=== PATIENT | female | born 1955 | race Caucasian/White ===

== ENCOUNTER 2017-03-20 09:25 | Day surgery (SDC) | payer BC, MEDICARE ==
[~2017-03-20] VITALS: Ht 170.2 cm; Wt 84.4 kg
[2017-03-20] MEDS ORDERED: PAXIL40 MG PO (10:17)
[2017-03-20] MEDS ORDERED: LIPITOR10 MG PO (10:37)
[2017-03-20] MEDS ORDERED: NEXIUM40 MG PO (10:38)
[2017-03-20] MEDS ORDERED: FLUTICASONE PRO16 GM NAS (10:38)
[2017-03-20] MEDS ORDERED: LISINOPRIL10 MG PO (10:38)
[2017-03-20] MEDS ORDERED: AVELOX400 MG PO (10:39)
[2017-03-20] MEDS ORDERED: KLOR-CON M2020 MEQ PO (10:39)
[2017-03-20] MEDS ORDERED: REQUIP1 MG PO (10:40)
[2017-03-20] MEDS ORDERED: ESTRACE0.5 MG PO (10:42)
--- NOTE | 2017-03-20 12:42 | NUR ---
03/20/17 Stephen2 Chana Barreto 1239-PATIENT ARRIVED TO PACU ON 2L NC O2 SAT 98%. PATIENT AWAKE DENIES PAIN OR NAUSEA. PATIENT DOES HAVE HICCUPS. DROWSY
--- NOTE | 2017-04-25 10:25 | OR ---
[facility] [address] [place], [place] [address] Signed DATE OF PROCEDURE: 03/20/17 PREOPERATIVE DIAGNOSIS Clinical gastroesophageal reflux disease, longstanding. POSTOPERATIVE DIAGNOSES Enterogastritis. Poor flap valve and chronic esophagitis; no evidence of Baeza epithelium. PROCEDURE: Esophagogastroduodenoscopy with biopsy. SURGEON: Noah Murray MD ANESTHESIA: Intravenous sedation, Fentanyl 100 mcg, Versed 3.5 mg. INDICATION A 61-year-old white woman, who is a patient of Dr. Ru Brooks. She had a significant reflux disease including spontaneous regurgitation, substernal burning pain, and so on. She is currently on esomeprazole 40 mg p.o. q. day. She is admitted to undergo an upper endoscopy with to better characterize her problem anticipating possible surgical intervention in the future. She understands the risk of the procedure including but not limited to bleeding, infection, perforation, and other unforeseen complications. Understanding this, she wishes to proceed. FINDINGS Chronic esophagitis was noted, but there was no evidence of Baeza epithelium, stricture, or neoplasm. There was no sign of varices. The s tomach itself had proximal gastric polyps, a few only, probably related to PPI use. The antrum did have linear erythematous erosive changes consistent with gastritis, but no ulcer proper, and there was no evidence of cancer. The duodenum was normal. SALINA test was negative 15 minutes post procedure. DESCRIPTION OF PROCEDURE The patient was brought to the endoscopy suite and given topical Hurricane spray, hypopharyngeal anesthesia, and placed in a lateral decubitus position. She was given intravenous sedation to the point of slurred speech and nystagmus. A bite-block was placed. A full cardiopulmonary monitoring was maintained. An Olympus video upper endoscope was passed in the hypopharynx. The vocal cords appeared normal. The hypopharyngeal tissues were not pa r ticularly edematous. The scope was advanced in the esophagus. Chronic inflammatory changes were noted in the mid and distal esophagus with no stricture proper. The scope was passed into the stomach, insufflated with air, and rugal folds appeared reasonably normal. The antrum showed erythematous linear near Electronically Signed By: NOAH MURRAY MD 04/25/17 1025 PATIENT NAME: EDWINA SANCHEZ OPERATIVE REPORT DATE OF : 51 PHYSICIAN: NOAH MURRAY MD REPORT #: [id number] REPORT IS CONFIDENTIAL AND NOT TO BE RELEASED WITHOUT AUTHORIZATION [facility] [address] [place], [place] [address] Signed erosions of the pylorus. The scope was passed through the pylorus into the duodenum which was normal. Overall, biopsies were taken from the duodenum to assess for celiac disease. Careful inspection of bulbar portion showed no sign of ulcer. The scope was withdrawn from the stomach where biopsies were taken from the prepyloric antrum, pathologic testing. Retroflex view showed a marginal flap valve generally. There was no evidence of Dakota ulcer. The scope was straightened a bit more and withdrawn. Biopsy was taken of the distal esophagus and midesophagus as well. The patient was taken to the recovery room in good condition after procedure having suffered no complications. CONCLUDING DIAGNOSES Enterogastritis with proximal gastric polyps, probably related to PPI use. Poor flap valve and chronic esophagitis. Enterogastritis. PLAN Recommend continued use of esomeprazole 40 mg p.o. q. day. We will check the pathology reports. Consideration will be made for antireflux operation and another testing appropriate to it. She will return to see us in approximately 4 weeks. MD DENNY Moody/Della /[id number] cc: Ru Brooks MD Electronically Signed By: NOAH MURRAY MD 04/25/17 1025 PATIENT NAME: EDWINA SANCHEZ OPERATIVE REPORT DATE OF : 51 PHYSICIAN: NOAH MURRAY MD REPORT #: [id number] REPORT IS CONFIDENTIAL AND NOT TO BE RELEASED WITHOUT AUTHORIZATION
== END 2017-03-20 13:19 | disposition home or self-care (01) ==
LOC: OPS 09:25 → DS 09:25 → OPS 11:00
PROVIDERS: Surgery
PROC: 0DB28ZX Excision of Middle Esophagus, Via Natural or Artificial Opening Endoscopic, Diagnostic (ICD-10-PCS; 2017-03-20)
PROC: 0DB38ZX Excision of Lower Esophagus, Via Natural or Artificial Opening Endoscopic, Diagnostic (ICD-10-PCS; 2017-03-20)
PROC: 0DB78ZX Excision of Stomach, Pylorus, Via Natural or Artificial Opening Endoscopic, Diagnostic (ICD-10-PCS; 2017-03-20)
PROC: 0DB68ZX Excision of Stomach, Via Natural or Artificial Opening Endoscopic, Diagnostic (ICD-10-PCS; 2017-03-20)
PROC: 0DB98ZX Excision of Duodenum, Via Natural or Artificial Opening Endoscopic, Diagnostic (ICD-10-PCS; principal; 2017-03-20 11:00)
DX: K29.50 Unspecified chronic gastritis without bleeding (principal); K31.7 Polyp of stomach and duodenum; K20.9 Esophagitis, unspecified; K31.89 Other diseases of stomach and duodenum; K44.9 Diaphragmatic hernia without obstruction or gangrene; I10 Essential (primary) hypertension; Z90.49 Acquired absence of other specified parts of digestive tract; Z90.710 Acquired absence of both cervix and uterus; Z98.890 Other specified postprocedural states
CPT/HCPCS: 99152; 99153; J2250; J3010; J7120

== ENCOUNTER 2017-10-23 08:23 | Inpatient (IN) | payer BC, MEDICARE ==
[~2017-10-23] VITALS: Ht 170.2 cm; Wt 82.5 kg
--- OUTSIDE RECORDS SUMMARY | ~2017-10-23 | XMS | Clinical Summary ---
Demographics + + + | Address | [address] | | | [place] [address] | + + + | Home Phone | | + + + | Preferred Language | Unknown | + + + | Marital Status | | + + + | Protestant Affiliation | Unknown | + + + | Race | White | + + + | Ethnic Group | Not or | + + + Author + + + | Author | [facility] | + + + | Organization | [facility] | + + + | Address | Unknown | + + + | Phone | Unavailable | + + + Support + + + + + | Name | Relationship | Address | Phone | + + + + + | WHIT SANCHEZ | ECON | [place] | | + + + + + Care Team Providers + +------+ + | Care Vice President Payer Name | Role | Phone | + +------+ + | Farnaz Chase MD | PP | | + +------+ + Source Comments VALENTINA is fully live on both [employer] Ambulatory and [employer] InPatient[facility] Allergies Not on File Current Medications Not on file Active Problems Not on file Encounters +--------+ + + + + | Date | Type | Specialty | Care Team | Description | +--------+ + + + + | 10/09/ | Documentati | | Cyndy Morris | | | 2017 | on | | Raghu Martin | | +--------+ + + + + | 10/09/ | Documentati | | Tristan Odonnell, | | | 2018 | on | | POWER Wilson-A | | +--------+ + + + + | 10/06/ | Diagnostic | | Tristan Odonnell, | Hearing loss | | 2017 | Visit | | POWER Wilson-A | | +--------+ + + + + from Last 3 Months Social History + +-------+ +--------+------+ | Tobacco Use | Types | Packs/Day | Years | Date | | | | | Used | | + +-------+ +--------+------+ | Never Assessed | | | | | + +-------+ +--------+------+ + + + | Sex Assigned at | Date Recorded | | | | + + + | Not on file | | + + + Plan of Treatment +--------+ + + + + | Date | Type | Specialty | Care Team | Description | +--------+ + + + + | 01/06/ | Diagnostic | | Tristan Odonnell, | | | 2017 | Visit | | JUSTIN Wilson [address] | | | | | | [address] | | | | | | [address] [place], [place] | | | | | | [phone] | | | | | | | | +--------+ + + + + + + + + + | Health Maintenance | Due Date | Last Done | Comments | + + + + + | INFLUENZA VACCINE | | | | | (FLU SHOT) | 7 | | | + + + + + Results Not on filefrom Last 3 Months"
--- OUTSIDE RECORDS SUMMARY | ~2017-10-23 | XMS | Encounter Summary ---
Demographics + + + | Address | [address] | | | [place] [address] | + + + | Home Phone | | + + + | Preferred Language | Unknown | + + + | Marital Status | | + + + | Oriental Orthodox Affiliation | Unknown | + + + | Race | White | + + + | Ethnic Group | Not or | + + + Author + + + | Author | [facility] | + + + | Organization | [facility] | + + + | Address | Unknown | + + + | Phone | Unavailable | + + + Support + + + + + | Name | Relationship | Address | Phone | + + + + + | WHIT SANCHEZ | ECON | [place] | | + + + + + Care Team Providers + +------+ + | Care Soft Mud Molder Name | Role | Phone | + +------+ + | Farnaz Chase MD | PCP | | + +------+ + Encounter Details +--------+ + + + + | Date | Type | Department | Care Team | Description | +--------+ + + + + | 10/09/ | Documentati | Otolaryngology | Tristan Odonnell, | | | 2018 | on | Audiology Services | [address] | | | | | at [facility] [address] | [facility] | | | | | [facility] | [address] [place], [place] | | | | | Mailcode: [address] | [phone] | | | | | [facility] | | | | | | [place], [place] | | | | | | [address] | | | | | | [phone] | | | +--------+ + + + + Social History + +-------+ +--------+------+ | Tobacco [...] on file | | + + + as of this encounter Plan of Treatment +--------+ + + + + | Date | Type | Specialty | Care Team | Description | +--------+ + + + + | 01/06/ | Diagnostic | Carpenter/Labor | Tristan Odonnell, | | | 2018 | Visit | | [address] | | | | | | [address] | | | | | | [place] | | | | | | [address] | | | | | | | | +--------+ + + + + as of this encounter Visit Diagnoses Not on filein this encounter"
--- OUTSIDE RECORDS SUMMARY | ~2017-10-23 | XMS | Encounter Summary ---
Demographics + + + | Address | [address] | | | [place] [address] | + + + | Home Phone | | + + + | Preferred Language | Unknown | + + + | Marital Status | | + + + | Hinduism Affiliation | Unknown | + + + | Race | White | + + + | Ethnic Group | Not or | + + + Author + + + | Author | [facility] | + + + | Organization | [facility] | + + + | Address | Unknown | + + + | Phone | Unavailable | + + + Support + + + + + | Name | Relationship | Address | Phone | + + + + + | WHIT SANCHEZ | ECON | [place] | | + + + + + Care Team Providers + +------+ + | Care Conservation Agent Name | Role | Phone | + +------+ + | Farnaz Chase MD | PCP | | + +------+ + Encounter Details +--------+ + + + + | Date | Type | Department | Care Team | Description | +--------+ + + + + | 10/09/ | Documentati | Otolaryngology | Cyndy Morris | | | 2018 | on | Audiology Services | K, [address] | | | | | at [facility] [address] | [facility] | | | | | [facility] | [place], [place] | | | | | Mailcode: [address] | [phone] | | | | | [facility] | | | | | | [place], [place] | | | | | | [address] | | | | | | [phone] | | | +--------+ + + + [...] + + | 01/06/ | Diagnostic | Precision Grinder External | Tristan Odonnell, | | | 2017 | Visit | | [address] | | | | | | [address] [facility] | | | | | | [place] | | | | | | [phone] | | | | | | | | +--------+ + + + + as of this encounter Visit Diagnoses Not on filein this encounter"
--- OUTSIDE RECORDS SUMMARY | ~2017-10-23 | XMS | Encounter Summary ---
Demographics + + + | Address | [address] | | | [place] [address] | + + + | Home Phone | | + + + | Preferred Language | Unknown | + + + | Marital Status | | + + + | Anabaptist Affiliation | Unknown | + + + | Race | White | + + + | Ethnic Group | Not or | + + + Author + + + | Author | [facility] | + + + | Organization | [facility] | + + + | Address | Unknown | + + + | Phone | Unavailable | + + + Support + + + + + | Name | Relationship | Address | Phone | + + + + + | WHIT SANCHEZ | ECON | [place] | | + + + + + Care Team Providers + +------+ + | Care Advisor Advocate Angel Co Founder Name | Role | Phone | + +------+ + | Farnaz Chase MD | PCP | | + +------+ + Reason for Visit + + + | Reason | Comments | + + + | Hearing loss | | + + + Benefits Check (Routine) + +--------+ + + + + | Status | Reason | Specialty | Diagnoses / | Referred By | Referred To | | | | | Procedures | Contact | Contact | + +--------+ + + + + | Authorized | | [facility] | | Non[facility] | Ent | | | | | | Epic Dept | [facility] | | | | | | | [address] | | | | | | | [address] | | | | | | | [facility] | | | | | | | Mailcode: | | | | | | | [address] | | | | | | | Physician's | | | | | | | Pavilion | | | | | | | [place], [place] | | | | | | | [address] | | | | | | | Phone: | | | | | | | [phone] | | | | | | | Fax: | | | | | | | [phone] | + +--------+ + + + + Encounter Details +--------+ + + + + | Date | Type | Department | Care Team | Description | +--------+ + + + + | 10/06/ | Diagnostic | Otolaryngology | Tristan Odonnell, | Hearing loss | | 2018 | Visit | Audiology Services | [address] | | | | | at [facility] [address] | [address] | | | | | [facility] | [address] [place], [place] | | | | | Mailcode: [id number] | [phone] | | | | | Physician[facility] | | | | | | [place], [place] | | | | | | [address] | | | | | | [phone] | | | +--------+ + + + [...] + + + as of this encounter Progress Notes Katie Phillips CCC-A - 10/06/2017 2:30 PM [facility] Cochlear Implant Program Name: Analia Sanchez : 1955 Date of Visit: 10/06/2017 Clinician: Katie Phillips M.A., [facility] Interval: re-establishing CI care CI: Right, HUANG: Left (ReSound BTE) Delivery Assistant: Cochlear Internal/External: CI24M/Glorieta Cochlear Implant Programming Summary History: Analia Sanchez, 61 y.o., was seen today at the [facility] to reestablis h care of her right cochlear implant device. Ms. Sanchez currently utilizes a Glorieta proc essor on her right ear. She utilizes a ReSound hearing aid for her left ear which she purch ased 9-12 months ago in [place], [place]. As a reminder, Ms. 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 She was implanted with a right CI24M omero ce by Dr. Hope in 1999 and previously received CI care from [facility] in [place], [place]. Ms. Zuniga ey transferred CI care to the [facility] in June,. She was last seen for transf er of care appointment on 07/16/2015. At the present appointment, Ms. Sanchez reported that Cochlear had contacted her and said that her current Glorieta processor has been obsolesced and she needed to initiate the proces s for CI upgrade. Ms. Sanchez shared that she was a little confused as she thought the pro cessor upgrade would be here to forklift picker today. Ms. Sanchez's Glorieta processor is currentl y obsolete and will not be repaired or replaced by the manufacturing technology professor. The patient was counseled regarding CI upgrade process as well as Cochlear's processor tech nology currently compatible with her internal device (N6 and Kanso). Ms. Sanchez expressed that she would like to pursue upgrade to the Kanso speech processor. An order form was shayy led out and emailed to [employer] Upgrade Team on behalf of the patient. A letter of medical necessity was written and routed for physician signature. Programming: Right CI: Ms. Sanchez's right Glorieta processor was connected to the computer for programming. Impe dances were WNL across the electrode array. Current MAP 20 was opened and live voice was ac tivated. All electrodes were functioning within compliance levels. No changes were made to current settings and settings remain downloaded as follows: Map(s) Programmed: Program Location Map # Description P1 20 Previously preferred setting, +3 cu's P2 18 Previously preferred setting It was recommended that Ms. Sanchez return in 3 months for CI upgrade appointment, or befo re that time on an as needed basis. Ms. Sanchez also shared that she has recently been considering second side cochlear implan t for the left ear as her hearing continues to decline, but is somewhat hesitant. Expectati ons regarding second side CI were discussed briefly with the patient and Ms. Sanchez was en couraged to contact the [facility] for second side CI evaluation sequence should she dec chang to pursue further. It was a pleasure working with Ms. Sanchez today. If there are any questions regarding to day's evaluation, please do not hesitate to contact me at . Katie Phillips M.A., CCC-A Clinical & Rehabilitative [facility] Department of Otolaryngology Audiology Services [address] [place] [address] in this encounter Plan of Treatment +--------+ + + + + | Date | Type | Specialty | Care Team | Description | +--------+ + + + + | 01/06/ | Diagnostic | Reptile Farmer | Tristan Odonnell, | | | 2018 | Visit | | [address] | | | | | | [address] | | | | | | Rd [place], [place] | | | | | | [address] | | | | | | | | +--------+ + + + + as of this encounter Visit Diagnoses Not on filein this encounter"
[~2017-10-23 08:23] MED LIST: AVELOX400 MG PO; ESTRACE0.5 MG PO; FLUTICASONE PRO16 GM NAS; KLOR-CON M2020 MEQ PO; LIPITOR10 MG PO; LISINOPRIL10 MG PO; NEXIUM40 MG PO; PAXIL40 MG PO; REQUIP1 MG PO
--- NOTE | 2017-11-10 15:31 | NUR ---
11/10/17 1531 Britt López 1434 PT ARRIVED IN PACU SLEEPY WITH NG TUBE IN PLACE AND PLACED ON INTERMITENT SUCTION. ANESTHESIA AT BEDSIDE. PT'S HEARING AIDE PLACED IN L EAR AND COCHLEAR IMPLANT PLACED ON R EAR. 1508 PT C/O ABD PAIN. FENTANYL 25MCG GIVEN IVP. 1515 PT RESTING. REU. 1522 PT GRIMACING AND C/O ABD PAIN. UNABLE TO RATE AT THIS TIME. FENTANYL 25MCG GIVEN IVP. 1531 PT RESTING.
--- NOTE | 2017-11-10 16:15 | NUR ---
PT TRANSFERED TO MED/SURG FROM PACU. PT REPORTS 8/10 PAIN (SEE MAR FOR MEDICATION GIVEN). AT BEDSIDE. PT REPORTS DISCOMFORT IN BACK. WARM BLANKET PROVIDED AND SUPPORTING PT REQUESTED WITH HAND AT BACK. SCDS IN PLACE. BED RAILS UP. CALL LIGHT WITHIN REACH. PT VERBALIZES UNDERSTANDING OF PLAN OF CARE AND STATES SHE HAS NO ADDITIONAL REQUESTS OR COMPLAINTS AT THIS TIME.
--- NOTE | 2017-11-10 17:35 | NUR ---
RN CALLED TO CLARIFY ORDERS FOR AGRICULTURE LABORER AND I.V. TYLENOL ORDER IN NURSE NOTIFY ORDER. AGRICULTURE LABORER IS CONFIRMED TO BE MORPHINE AND CONFIRMED TYLENOL I.V. ORDER.
--- NOTE | 2017-11-10 18:00 | NUR ---
PT RESTING IN BED REPORTS BACK SPASMS DUE TO RESTING ON HER BACK. SCANT AMOUNT OF RED DRAINAGE IN NGT AT THIS TIME. V/S STABLE. SPOUSE AT BEDSIDE. TYLENOL I.V. INFUSING AT THIS TIME.
--- NOTE | 2017-11-10 18:12 | NUR ---
PT ARRIVED TODAY POST HILL REPAIR. MORPINE GIVEN X1 WITH GOOD RESULTS FOR PAIN MANAGEMENT. PT REPORTS ONGOING CHRONIC PAIN IN BACK. REPOSITIONING AND HEAT APPLIED WITH GOOD RESULTS. PT TOLERATING ICE CHIPS. SCANT AMOUNT OF RED DRAINAGE FROM NG TUBE TO BE MONITORED. MEPLEX AND OPSITE DRESSING CDI. ON-Q PUMP IN PLACE. DURAMORPH PROTOCOL ENDS AT 2200, TRANSPORTATION ASSOCIATE TO BEGIN AT THAT TIME. BURKS TO GRAVITY, PATIENT, GOOD UO.
--- NOTE | 2017-11-10 18:13 | NUR ---
PATIENT RELAXING IN BED, EYES CLOSED. ASKED ME TO SHUT LIGHTS OFF WHEN I LEAVE ROOM. FRESH WATER GIVEN, CALL LIGHT IN REACH. NO OTHER NEEDS AT THIS TIME.
--- NOTE | 2017-11-10 18:49 | NUR ---
PT RESTING IN BED REPORTS PAIN 3/10 AND THAT IS TOLERABLE AT THIS TIME.
--- NOTE | 2017-11-10 19:00 | NUR ---
RECEIVED REPORT FROM RN. PATIENT IS RESTING IN BED, BREATHING IS EVEN AND UNLABORED. O2 SATURATION IS 95% ON 2L O2 VIA NC. REPORTS 2/10 ABD PAIN. APPEARS TO BE TIRED, CLOSES EYES OFF AND ON DURING REPORT. DENIES NEEDS AT THIS TIME. NG TUBE HAS SCANT BLOOD IN TUBE, MD NOTIFIED. CALL LIGHT WITHIN REACH, AT BEDSIDE.
--- NOTE | 2017-11-10 20:08 | NUR ---
PATIENT IS RESTING IN RIGHT SIDE, BREATHING IS EVEN AND UNLABORED. RR IS 14. O2 SATURATION IS 95% ON 2L O2. NO NEW DRAINAGE FROM NGT. REPORTS 5/10 PAIN IN ABD, PRN IV DILAUDID GIVEN PER EMAR. DENIES NAUSEA AT THIS TIME. RESTING COMFORTABLY. ASSESSMENT DONE. NO FURTHER NEEDS. CALL LIGHT WITHIN REACH, AT BEDSIDE.
--- NOTE | 2017-11-10 21:09 | NUR ---
PATIENT RESTING COMFORTABLY IN BED, BREATHING IS EVEN AND UNLABORED. O2 SATURATION IS 95% ON 2L O2. REPORTS 2/10 PAIN IN ABD. CALL LIGHT WITHIN REACH, FAMILY AT BEDSIDE.
--- NOTE | 2017-11-10 22:05 | NUR ---
CALLED DR. MURRAY FOR PLUMBING TECHNICIAN ORDER VERIFICATION. PATIENT IS TO RECEIVE MORPHINE PLUMBING TECHNICIAN, NOT DILAUDID PLUMBING TECHNICIAN.
--- NOTE | 2017-11-10 22:15 | NUR ---
PATIENT RESTING IN BED COMFORTABLY, BREATHING IS EVEN AND UNLABORED. REPORTS 4/10 PAIN IN ABD. MORPHINE HEAT READER PUMP STARTED WITH SECOND RN VERIFY BY CHANTAL. EDUCATION ABOUT HEAT READER PUMP COMPLETED, PATIENT REPEATED BACK UNDERSTANDING. O2 SATURATION IS 89% ON ROOM AIR, PATIENT PUT ON 1L O2. SMALL AMOUNT OF BROWN DRAINAGE FROM NGT. REINFORCED DRESSING DUE TO SMALL AMOUNT OF SEROSANGUINEOUS DRAINAGAGE FROM ON-Q PUMP. BURKS CATHETER REMOVED. PATIENT DENIES FURTHER NEEDS. CALL LIGHT WITHIN REACH, FAMILY AT BEDSIDE.
--- NOTE | 2017-11-11 00:08 | NUR ---
ASSISTED PATIENT TO BEDSIDE COMODE WITH 2PA. PATIENT IS WEAK, REQUIRES ASSISTANCE WITH GETTING OUT OUT BED, WHEN STANDING, PATIENT DENIES DIZZINESS, NO SHORTNESS OF BREATH NOTED. NOW RESTING IN BED COMFORTABLY AGAIN, BREATHING IS EVEN AND UNLABORED. O2 SATURATION IS 95% ON 1L O2 VIA NC. ORNAMENTAL METAL ERECTOR APPRENTICE PUMP OPERATING APPROPRIATELY. DENIES FRUTHER NEEDS. CALL LIGHT WITHIN REACH, FAMILY AT BEDSIDE.
--- NOTE | 2017-11-11 02:51 | NUR ---
PATIENT RESTING COMFORTABLY IN BED, BREATHING IS EVEN AND UNLABORED. RR IS 12, O2 SATURATION IS 95% ON 1L O2. SMALL AMOUNT OF BROWN DRAINAGE FROM NGT NOTED. REPORTS PAIN IS 2/10, RETREAD SUPERVISOR PUMP WORKING APPROPRIATELY. DENIES NEEDS. ASSESSMENT DONE. CALL LIGHT WITHIN REACH, FAMILY AT BEDSIDE.
--- NOTE | 2017-11-11 03:52 | NUR ---
PATIENT RESTING COMFORTABLY IN BED, BREATHING IS EVEN AND UNLABORED. O2 SATURATION IS 95% ON 1L O2. CALL LIGHT WITHIN REACH.
--- NOTE | 2017-11-11 05:15 | NUR ---
PATIENT RESTING COMFORTABLY IN BED, BREATHING IS EVEN AND UNLABORED. O2 SATURATION IS 96% ON 1L O2. RESPIRATORY RATE IS 10, ALL OTHER VITALS ARE STABLE. RT TO ROOM TO EVALUATE PATIENT. LUNGS ARE CLEAR, PATIENT IS EASILY ARROUSABLE. ENCOURAGED PATIENT TO DEEP BREATHE. REPORTS 2/10 PAIN AND STATES "I FEEL COMFORTABLE." WILL MONITOR CLOSELY. CALL LIGHT WITHIN REACH.
--- NOTE | 2017-11-11 06:09 | NUR ---
PATIENT RESTING COMFORTABLY IN BED, BREATHING IS EVEN AND UNLABORED. O2 SATURATION IS 95% ON 1L O2. DENIES NEEDS AT THIS TIME. NGT CLAMPED, PROVIDED JELLO. WILL MONITOR. REPORTS 2/10 PAIN WITH AUDIO VISUAL TECHNICIAN. CALL LIGHT WITHIN REACH, FAMILY AT BEDSIDE.
--- NOTE | 2017-11-11 06:16 | NUR ---
PATIENT HAD A GOOD NIGHT OVERALL. HAS BEEN RESTING THROUGHOUT SHIFT. VSS, URINE OUTPUT QS. PAIN HAS BEEN WELL CONTROLLED WITH MORPHINE DIRECTOR OF RADIOLOGY. CONSISTENTLY RATES PAIN AT 2/10 WHICH PATIENT STATES IS TOLERABLE FOR HER. INCREASED PAIN WITH MOVEMENT. INCISION REMAINS CDI, ABD PAD APPLIED TO DRESSING FOR SMALL AMOUNT OF DRAINAGE FROM ON-Q PUMP INSERTION SITE. PATIENT IS ALERT AND ORIENTED, DROWSY, RESPONDS APPROPRIATELY. LUNGS ARE CLEAR, BREATHING IS SHALLOW. REQUIRED 1L O2 TO MAINTAIN SATS. BOWEL TONES ARE RARE, NON-DISTENDED. REQUIRES 2PA TO BEDSIDE COMODE. IV FLUIDS INFUSING. NO ACUTE CHANGES FROM BEGINNING OF SHIFT.
--- NOTE | 2017-11-11 07:00 | NUR ---
REPORT RECEIVED FROM VASU RGEEN AT THIS TIME. PATIENT IS SITTING UP IN BED, RAILS UP AND PATIENT CALL LIGHT IS WITHIN REACH AT THIS TIME.
--- NOTE | 2017-11-11 07:40 | NUR ---
STEAM OVEN OPERATOR SYRINGE CHANGED AT THIS TIME. PATIENT RATES PAIN AT A 3/10 AT THIS TIME BUT PAIN IS TOLERABLE AT THIS TIME. PATIENT DENIES OTHER NEEDS AT THIS TIME.
--- NOTE | 2017-11-11 08:33 | NUR ---
PATIENT CALLED FOR ASSISTANCE TO BR. RN CAME IN FOR SUPPOSITORY. RN ASSISTED PATIENT BACK TO BED. THIS DELIVERY CREW MEMBER SET HER UP FOR BREAKFAST-OATMEAL. PATIENT WASNT HAPPY WITH PREVIOUS TRAY OF FOOD(EGG WAS TOO HARD AND WAS GIVEN TOO MUCH YOGURT) CRYO FILLED, FRESH WATER GIVEN. RT IN ROOM. CALL LIGHT IN REACH. NO OTHER NEEDS AT THIS TIME.
--- NOTE | 2017-11-11 09:09 | NUR ---
PATIENT TRANSFERRED 2 PERSON ASSIST UP TO THE CHAIR. PATIENT REQUESTED TO LEAVE THE NG TUBE IN AT THIS TIME DUE TO HX OF NAUSEA. PATIENT IS TOLERATING SIPS OF CLEAR LIQUIDS AND HAS NO C/O NAUSEA AT THIS TIME. SHE IS BURPING HAS SOME HYPOACTIVE BOWEL TONES BUT DENIES PASSING GAS. PATIENT IS ALERT AND ORIENTED AND IS ON 2L OF OXYGEN PER NC. MIDLINE DRESSING IS CDI WITH MEPILEX AND OPSITE AND ON Q PUMP INTACT.
--- NOTE | 2017-11-11 09:26 | NUR ---
PATIENT SITTING UP IN CHAIR WORKING ON CLEAR LIQUID BREAKFAST. VISITOR IN ROOM. PATIENT USING WASHCLOTH FOR FACE AND A COOL ONE FOR BACK OF NECK. CALL LIGHT IN REACH. NO OTHER NEEDS.
--- NOTE | 2017-11-11 10:04 | NUR ---
PATIENT ASSISTED BACK TO BED FROM THE CHAIR AFTER AMBULATING INTO THE BATHROOM. PATIENT WAS UNABLE TO VOID AT THIS TIME. SHE STILL REMAINS A 2 PERSON ASSIST TO THE TOILET.
--- NOTE | 2017-11-11 10:23 | NUR ---
DOCTOR TERRI IN THE ROOM TO ACESS THE PATIENT AT THIS TIME. NG TUBE PULLED OUT AT THIS TIME
--- NOTE | 2017-11-11 10:46 | NUR ---
DOCTOR MURRAY NOTIFIED OF BLOOD PRESSURE IN THE 80'S SYSTOLIC AT THIS TIME, PATIENT HAS NO SYMPTOMS OF LOW BLOOD PRESSURE AT THIS TIME, DENIES ANY PAIN OR DIZZINESS. PATIENT REMAINS ALERT AND ORIENTED. IV FLUIDS CONTINUE TO RUN INTO HER LEFT HAND WITHOUT ANY REDDNESS OR SWELLING. PATIENT WILL SLOWLY RAISE THE HEAD OF THE BED SHE TOLERATES IN PER DOCTOR MURRAY'S REQUEST.
[2017-11-11] MEDS ORDERED: TYLENOL325 MG PO (10:51)
--- NOTE | 2017-11-11 10:53 | NUR ---
MED REC COMPLETE
--- NOTE | 2017-11-11 11:07 | NUR ---
PT RESTING IN BED LAYING ON LEFT SIDE WHILE VITALS WERE BEING TAKEN. INITIAL BP OF 90/33 ON RIGHT ARM, PULSE 68, MAP OF 46. BP CUFF WAS REPOSITIONED AND BP WAS THEN 86/31 RA, HR 68, MAP 41. PATIENT DENIES COMPLAINTS OF DIZZINESS, NAUSEA, HEADACHE, OR FEELINGS OF LIGHTHEADEDNESS, PT ABLE TO ANSWER QUESTIONS APPROPRIATELY, MD NOTIFIED BY PRIMARY RN, WILL CONTINUE TO MONITOR PT PER MD REQUEST.
--- NOTE | 2017-11-11 12:00 | NUR ---
PATIENT'S BLOOD PRESSURE NOW 109/49 WITH A PULSE OF 66. PATIENT PLACED ON HER BACK AND THE HOB ELEVATED A LITTLE MORE AT THIS TIME. PATIENT RESTING WITH EYES CLOSED.
--- NOTE | 2017-11-11 13:07 | NUR ---
PATIENT RESTING WITH EYES CLOSED, HOB ELEVATED AND RESPIRATIONS EVEN UNLABORED. DENIES ANY QUESTIONS OR CONCERNS AT THIS TIME
--- NOTE | 2017-11-11 13:44 | NUR ---
PATIENT SITTING UP IN BED, VITALS TAKEN. SHE REMAINS HYPOTENSIVE, WILL CONTINUE TO MONITOR BP AND PATIENTS PAIN LEVEL. SHE HAS NO S/S OF HYPOTENTION AT THIS TIME.
--- NOTE | 2017-11-11 15:54 | NUR ---
patient ambulated up to the nurses station and then back to the bathroom with a front wheeled walker and 1 person assist. patient was able to void in the toilet but missed the hat. patient back to bed with hob elevated. pain level at this time in her abdomen 10/31.
--- NOTE | 2017-11-11 17:17 | NUR ---
PATIENT LYING IN BED, EYES CLOSED. IN CHAIR, NEXT TO BED. VITALS DONE. CALL LIGHT IN REACH NO OTHER NEEDS AT THIS TIME.
--- NOTE | 2017-11-11 17:25 | NUR ---
PATIENT HAS HAD HYPOTENTION TODAY. DOCTOR TERRI WAS AWARE AND PLACING PATIENT IN SEMIFOWLERS POSITION DOES ASSIST IN RAISING THE BLOOD PRESSURE. PATIENT HAS BEEN RESTING WELL TODAY WITH PAIN THAT IS WELL CONTROLLED WITH A MORPHINE DIRECTOR PHARMACOVIGILANCE AND AN ON Q PUMP. SHE HAS A MIDLINE INCISION COVERED WITH A MEPILEX AND OPSITE DRESSING, IT IS CDI. PATIENT HAS BEEN UP AND AMBULATED TO THE BATHROOM AND IN THE HALLWAY ONCE. SHE IS A 1 PERSON ASSIST WITH A FWW. SHE REMAINS ON OXYGEN AT 1L PER NC.
--- NOTE | 2017-11-11 19:00 | NUR ---
ROUNDED CHARGE. PATIENT IS RESTING IN BED WITH FAMILY AT THE BEDSIDE. PATIENT DENIES ANY PAIN AT THIS TIME. PATIENT VERBALIZES UNDERSTADING OF CARDIOLOGY NURSE PRACTITIONER FOR PAIN CONTROL. PATIENT AND PATIENTS FAMILY DENIES ANY COMMENTS QUESTIONS OR CONCERNS. NO FURTHER NEEDS NOTED. CALL LIGHT IN REACH.
--- NOTE | 2017-11-11 20:00 | NUR ---
RECEIVED REPORT AT 1900 FOUND PT IN BED SOMEWHAT SEDATED BUT RESPONSIVE TO COMMANDS. O2 SATS WERE >92%, PORTAL ADMINISTRATOR IS ON. NO CONCERNS AT THIS TIME.
--- NOTE | 2017-11-11 21:45 | NUR ---
PATIENT ASSISTED TO THE RESTROOM A SBA. PATIENT IS STEADY ON HER FEET. PATIENT STATES SHE IS PAINFUL WITH MOVEMENT. PATIENT IS BACK IN BED WITH SCDS AND PULSE OX IN PLACE. PATIENT IS USING WOODYARD CRANE OPERATOR APPROPRIATELY. NO FURTHER NEEDS NOTED. CALL LIGHT IN REACH.
--- NOTE | 2017-11-11 22:00 | NUR ---
V/S ARE WDL AT THIS TIME. ALL LOBES ARE CLEAR, PT IS STILL USING INSPECTOR OUTSIDE STEAM DISTRIBUTION. ABD DRESSING IS C/D/I, ON-Q PUMPS ARE IN PLACE BUT THERE IS SOME LEAKAGE AROUND THE LEFT INSERTION SITE. PT HAS BOWEL TONES BUT HAS NOT PASSED GAS SO FAR. PT IS TOLERATING CLEAR LIQUID DIET SO FAR.
--- NOTE | 2017-11-12 00:35 | NUR ---
PT IS SLEEPING AT THIS TIME. O2 SATS ARE 97%.
--- NOTE | 2017-11-12 02:00 | NUR ---
PT IS SLEEPING AT THIS TIME.
--- NOTE | 2017-11-12 04:06 | NUR ---
PT IS SLEEPING AT THIS TIME.
--- NOTE | 2017-11-12 05:32 | NUR ---
V/S OVERALL ARE WDL, PT AT TIMES IS DROUSY FROM FILTER PRESS OPERATOR. PT HAS ABD SOUNDS PRESENT BUT HAS NOT PASSED GAS SO FAR. PT DENIES N/V AND IS TOLERATING CLEAR LIQUIDS. ALL LOBES ARE CLEAR. PT IS USING INSENT. MAITE. AND WAS EDUCATED ON DEEP BREATHING. ABD DRESSING IS C/D/I, LEFT ON-Q PUMP IS LEAKING SOME UNDER THE DRESSING. PT IS AWARE THAT SWITCH TO PO MEDS WILL BE MADE TODAY. NO NEW CONCERNS AT THIS TIME.
--- NOTE | 2017-11-12 07:25 | NUR ---
BEDSIDE REPORTS RECEIVED FROM JAVIER. PATIENT AWAKE A&O, SITTING IN THE CHAIR, DENIES NAUSEA, REPORTS 3/10 PAIN. MIDLINE INCISION WNL, ONQ PUMP WNL. MORPHINE SUPERVISOR DISPLAY FABRICATION IN USE. CALL LIGHT IN REACH. FAMILY IN ROOM VISITING.
--- NOTE | 2017-11-12 10:20 | NUR ---
IN TO ROOM, ASSISTED PATIENT TO BATHROOM WITH 2PA WITH FWW. PATIENT REQUESTED TO GO FOR A WALK. PATIENT WALKED FROM ROOM TO THE NURSES STATION AND BACK TO HER ROOM. SHIFT ASSESSMENT COMPLETED. PATIENT REPORTED 2/10 ABD PAIN WHICH IS TOLERABLE FOR HER. MID LINE INCISION WNL, [address] WITH SOME LEAKING AND COVER WITH ABD PAD. IV SITE ON THE AC PATENT. BOWEL TONE POSITIVE. SCD ON. PATIENT IS ON 1L O2. DESATED WITH ACTIVITY WITHOUT OXYGEN. NO FLATUS. DENIES NAUSEA. TOLERATED CLEAR LIQUID DIET WELL. WILL CONTINUE TO MONITOR.
--- NOTE | 2017-11-12 11:51 | NUR ---
PATIENT RESTING IN BED AT THIS TIME. DENIES NAUSEA. REPORT 2/10 ABD PAIN. DENIES THE NEED FOR PAIN MEDS. WILL CONTINUE TO MONITOR.
--- NOTE | 2017-11-12 13:53 | NUR ---
DR MURRAY WAS IN TO SEE AND REEVALUATE PATIENT AND DISCUSS PLAN OF CARE. PLAN TO ADVANCED DIET TO FULL LIQUID, DC ABD DRESSING AND ONQ PUMPS. PATIENT RESTING IN THE CHAIR REPORTED MINIMAL PAIN, NO NAUSEA. FOOD ORDERED. FAMILY AT BEDSIDE.
--- NOTE | 2017-11-12 16:30 | NUR ---
ABD DRESSING AND ON Q PUMPS REMOVED PER MD ORDER. PATIENT TOLERATED WELL. MIDLINE INCISION WITH STERI STRIP AND WNL.
--- NOTE | 2017-11-12 18:16 | NUR ---
PATIENT HAD DONE WELL TODAY. HAD BEEN UP TO CHAIR MOST OF THE SHIFT. AMBULATED TWICE IN THE HALLWAY. ABD DRESSING AND ON Q PUMPS REMOVED THIS PM. INCISION DRY AND CLEAN WITH STERI STRIP. BOWEL TONE POSITIVE. PATIENT REPORTED PASSING FLATUS THIS PM. TOLERATED FULL LIQUID WELL. HAD PO DILAUDID TWICE. GOOD URINE OUTPUT.
--- NOTE | 2017-11-12 19:02 | NUR ---
SHE REFUSED HER SHOWER TODAY.
--- NOTE | 2017-11-12 20:00 | NUR ---
RECEIVED REPORT AT 1900 AND FOUND PT UP IN CHAIR EATING A FULL LIQUID DINNER. PT HAD NO IMMEDIATE CONCERNS.
--- NOTE | 2017-11-12 20:17 | NUR ---
ROUNDED CHARGE. PATIENT IS RESTING IN RECLINER VISITING WITH FAMILY. PATIENT DENIES ANY NEEDS AT THIS TIME. PATIENT DENIES ANY PAIN. CALL LIGHT IN REACH.
--- NOTE | 2017-11-12 22:00 | NUR ---
V/S ARE WDL, ABD SOUNDS ARE PRESENT, INCISION IS WELL APPROXIMATED WITH A SCANT AMOUNT OF DRY SEROUSANG. DRAINAGE. PT IS TOLERATING FULL LIQUID. PAIN IS WELL CONTROLLED WITH PO PAIN MEDS. PT OVERALL IS DOING MUCH BETTER. PT IS PASSING GAS. ALL LOBES ARE CLEAR. PT IS ON 1L OF O2 WHILE SHE IS SLEEPING. WILL D/C IN THE AM. NO NEW ISSUES NOTED SO FAR.
--- NOTE | 2017-11-12 23:55 | NUR ---
ASSISTED PT TO BATHROOM. PT VOIDED 450ML. PT IS BACK IN BED.
--- NOTE | 2017-11-13 01:55 | NUR ---
AT 0040 MD MURRAY WAS CALLED FOR A HOME MED PT WANTED TO ADD FOR RESTLESS LEG SYNDROME. ORDER WAS GIVEN. PT AT THIS TIME IS IN BED SLEEPING AT THIS TIME.
--- NOTE | 2017-11-13 04:01 | NUR ---
PT IS SLEEPING AT THIS TIME.
--- NOTE | 2017-11-13 05:07 | NUR ---
V/S ARE WDL, ABD SOUNDS ARE PRESENT, PT IS PASSING AND HAS HAD A BM THIS AM. BM WAS LIQUIDY. PT IS TOLERATING FULL LIQUID DIET. NO NEED FOR PAIN MEDICATION SO FAR. ABD INCISION IS VERIFICATION CLERK WITH STERI STRIPS, D/I. ABD IS MILDLY DISTENDED AND TENDER TO TOUCH. NO NEW CONCERNS FOR THIS PT SO FAR.
--- NOTE | 2017-11-13 07:40 | NUR ---
BEDSIDE REPORT RECEIVED FROM JAVIER. PATIENT AWAKE UP TO CHAIR. MORE ALERT THIS MORNING. REPORT MINIMAL ABD PAIN. REPORTS THAT SHE HAD A BOWEL MOVEMENT THIS AM. BREAFAST ORDERED. CALL LIGHT IN REACH. FAMILY IN ROOM.
--- NOTE | 2017-11-13 07:46 | NUR ---
PATIENT IS SITTING UP IN CHAIR WOULD LIKE TO TAKE A SHOWER AFTER SHE EATS BREAKFAST. SET HER SHOWER UP FOR HER. CHANGED LINENS.
[2017-11-13] MEDS ORDERED: HYDROMORPHONE HC4 MG PO (09:47)
[2017-11-13] MEDS ORDERED: POTASSIUM CHLO20 ME1 PO (09:48)
--- NOTE | 2017-11-13 09:48 | NUR ---
DR MURRAY WAS IN ROOM TO REEVAALUATE PATIENT AND DISCUSS PLAN OF CARE. PLAN TO DC HOME TODAY.
--- NOTE | 2017-11-13 10:00 | NUR ---
IN TO ROOM TO ASSESS PATIENT. PATIENT UP SITTING IN CHAIR, DENIES NAUSEA. REPORTS MINIMAL PAIN. MIDLINE INCISION OPEN TO AIR AND WNL. PATIENT REPORTS HAVING A BM THIS MORNING. LUNGS CLEAR. POSITIVE BOWEL TONE. IV SITE PATENT. NO OTHER REQUEST OR NEEDS AT THIS TIME.
--- NOTE | 2017-11-13 10:16 | NUR ---
PATIENT TOOK A SHOWER WITH HELP OF FAMILY MEMBER.
--- NOTE | 2017-11-26 14:11 | OR ---
[facility] [address], [place] [address] Signed DATE OF OPERATION: 11/10/2017 SURGEON: Noah Murray MD PREOPERATIVE DIAGNOSIS: Medically refractory gastroesophageal reflux disease including spontaneous regurgitation and small hiatal hernia. POSTOPERATIVE DIAGNOSIS: Medically refractory gastroesophageal reflux disease including spontaneous regurgitation and small hiatal hernia. PROCEDURES: 1. Hill repair (reconstruction of the gastroesophageal junction with posterior gastropexy). 2. Intraoperative manometrics . 3. Placement of On-Q pain pump catheters (subperitoneal bilateral subcostal). ANESTHESIA: General endotracheal (Aliza Saul CRNA). INDICATION: This 62-year-old white woman who is previously a patient of Dr. Burke Brooks (now retired) and now a patient of Moise Silva of [place], [place]. She has had longstanding gastroesophageal reflux symptoms including substernal and epigastric pain. She has not had dysphagia. She is unresponsive to Prilosec, but markedly benefitted by Nexium. She has had progression of her symptoms and is debilitated by them at this point. She does take Tums and other reun-clq-[id number] medications at night-time, but is bothered by spontaneous regurgitation and so on. 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 She has undergone upper endoscopy showing no evidence of neoplasm or Baeza epithelium and a small hiatal hernia is noted. She has undergone cardiac evaluation by Dr. Franks in [place], [place] and considered unlikely to have cardiac symptoms. After full consideration of her many options for reflux management, she wishes to proceed with operation as I have offered. This includes Hill posterior gastropexy by open technique. She and her understood the risks of bleeding, infection, dysphagia-either short or long-term, recurrent reflux or persistent reflux, failure to cure her symptoms of Electronically Signed By: NOAH MURRAY MD 11/26/17 1411 PATIENT NAME: EDWINA SANCHEZ OPERATIVE REPORT DATE OF : 51 REPORT #: [id number] PHYSICIAN: NOAH MURRAY MD PCP: PAUYL SILVA NP REPORT IS CONFIDENTIAL AND NOT TO BE RELEASED WITHOUT AUTHORIZATION [facility] [address], [place] [address] Signed pain and reflux, and other unforeseen complications. Understanding this, she wished to proceed. FINDINGS: She has some obesity, but not excessive. The GE junction showed a small hiatal hernia. No large hiatal hernia and certainly no paraesophageal hernia. The spleen was normal. There was surgical absence of the gallbladder. Palpation of the colon did reveal some diverticula, particularly in the sigmoid, but no active or acute inflammatory change. The stomach itself was normal. Reconstruction of the GE junction was undertaken in the typical way for Hill repair including anterior and posterior phrenoesophageal bundles pexed to the preaortic fascia. The resultant flap valve was optimal. Intraoperative manometrics were performed showing a good waveform. The peak pressure of about 40-45 mmHg over a 4 cm intra-abdominal segment. This was reproducible. There were no other findings of concern. DESCRIPTION OF PROCEDURE: The patient was brought to the operating room, given a general endotracheal anesthetic. A Rodrigues catheter was placed. Preoperative antibiotic Ancef was given. Sequential compression device stockings used and heparin subcutaneously administered. The abdomen was prepared with a chlorhexidine solution and draped sterilely. The compliance mgr attempted to pass a manometric tube through the nose, but this was unsuccessful and therefore passed it through the mouth. An upper midline incision was made minimizing the incision as much as possible and dissection was carried through the subcutaneous tissue and electrocautery used for hemostasis. The abdomen was entered without problem. There was fatty tissue within the abdomen as expected. The round ligament and falciform were freed from the abdominal wall extended over the liver itself noting the diaphragm to be without abnormality otherwise. The liver was reasonably normal. Certainly, no excessive fatty infiltration of liver. There was scar tissue in the right subhepatic space consistent with prior cholecystectomy a number of years ago. The liver was palpated and found to be normal. A rolled laparotomy pack was placed behind it to take pressure off the medial aspect. The left lateral segment of the liver was not excessively long. It was freed from the diaphragm using blunt or electrocautery dissection mindful of the phrenic vein coursing nearby. The lesser sac was incised with electrocautery and the incision extended to the GE junction. An upper hand retractor was used for exposure. Subsequently, a Bookwalter retractor was affixed to the lower aspect of the table allowing for retraction of the left lateral segment of liver medially exposing well the caudate lobe, the vena cava and the right rupali of the diaphragm. Using electrocautery, the margin between the right rupali and the phrenoesophageal bundle Electronically Signed By: NOAH MURRAY MD 11/26/17 1411 PATIENT NAME: EDWINA SANCHEZ OPERATIVE REPORT DATE OF : 51 REPORT #: [id number] PHYSICIAN: NOAH MURRAY MD PCP: PAULY SILVA NP REPORT IS CONFIDENTIAL AND NOT TO BE RELEASED WITHOUT AUTHORIZATION [facility] [address], [place] [address] Signed was freed. A Jemison clamp was applied to the right rupali and dissection carried cephalad. There was a bit of scar tissue in this area and meticulous care was maintained to free the muscular fibers from the esophagus itself. Dissection was carried more cephalad in the region of the gastrophrenic attachments, which were freed as well. A hook retractor was used to elevate the GE junction revealing the left rupali, which was similarly freed with blunt and electrocautery dissection. Meticulous care was maintained to free the GE junction fully including into the posterior mediastinum. The anterior and posterior vagal nerve trunks were identified and unencumbered. Once the GE junction was fully freed, assessment of the preaortic fascia was undertaken. Given the relatively small incision and mindful of the very haines preaortic fascia, it was deemed most advisable to avoid passage of a clamp as it was often the case superficial to the aorta, but simply pexed to the right and left crura elevating the preaortic fascia inferiorly for security of the repair. Using 0 silk sutures with Clyde felt pledgets soaked in Betadine, the right and left crura were reapproximated. The index finger could easily pass alongside the esophagus. Sri clamps were applied to the anterior and posterior phrenoesophageal bundles and mindful of the position of the vagal nerves, repair sutures made using 0 Ethibond suture with Clyde pledget soaked in Betadine. A seromuscular bite as well as the phrenoesophageal bundle was taken anteriorly and posteriorly, and also through the preaortic fascia elevating it with the silk suture used to reapproximate it more cephalad. Four such repair sutures were placed. They were secured with surgeon's throw. Palpation of the resultant flap valve showed it to be quite optimal. Intraoperative manometrics were then undertaken. Using a perfusion catheter with serial blood pressure catheter setup, a pullout pressure was undertaken showing a peak pressure of approximately 40-45 mmHg over a 4 cm intra-abdominal segment, the sutures were more fully secured to the preaortic fascia and the fundus of the stomach secured to the right rupali and the tendon of the diaphragm so as to avoid postoperative paraesophageal herniation of the fundus. Repeat pullout pressure was undertaken finding the waveform to be optimal and the affected durable. The sutures had been secured fully and were trimmed to a short length at this point. Palpation of flap valve showed it to be quite optimal. Irrigation was undertaken. There was no sign of bleeding or other problems. The roll pack behind the spleen was removed and the left lateral segment of liver allowed to return to its natural position. Bilateral subcostal On-Q pain pump catheters were placed under direct visualization using the tunneling device. They were placed just below the peritoneal liver along the costal margin bilaterally. These were later adjusted to length. The midline fascia was then reapproximated with running #1 PDS suture. The subcutaneous tissue was irrigated and skin closed with running subcuticular 3-0 Vicryl. Steri-Strips were applied as was a Mepilex silver sponge dressing and Op-Site. Catheters had been secured to the Marcaine infusion bulb as well. The patient was Electronically Signed By: NOAH MURRAY MD 11/26/17 1411 PATIENT NAME: EDWINA SANCHEZ OPERATIVE REPORT DATE OF : 51 REPORT #: [id number] PHYSICIAN: NOAH MURRAY MD PCP: PAULY SILVA NP REPORT IS CONFIDENTIAL AND NOT TO BE RELEASED WITHOUT AUTHORIZATION [address] [address] Signed ultimately extubated, anticipating transfer to the recovery room in good condition. Blood loss was less than 25 mL. Most likely sponge, needle, and instrument counts reported as correct x3. MD DENNY Moody/YANIRA /[id number] cc: MD Pauly Contreras NP Electronically Signed By: NOAH MURRAY MD 11/26/17 1411 PATIENT NAME: EDWINA SANCHEZ OPERATIVE REPORT DATE OF : 51 REPORT #: [id number] PHYSICIAN: NOAH MURRAY MD PCP: PAULY SILVA NP REPORT IS CONFIDENTIAL AND NOT TO BE RELEASED WITHOUT AUTHORIZATION
--- NOTE | 2017-11-26 14:11 | DS ---
[facility] [address], [place] [address] Signed ADMISSION DATE: 11/10/2017 DISCHARGE DATE: 11/13/2017 REASON FOR ADMISSION: This 62-year-old white woman is a patient of Pauly Silva NP, of [place], [place] previously, Dr. Burke Brooks in [place]. She has had longstanding reflux symptoms. She was admitted to undergo open Hill posterior gastropexy for reflux management. PERTINENT PHYSICAL EXAM: GENERAL: Pleasant white woman who is in no acute distress. HEENT: She has a cochlear implant and has some hearing deficit. Trachea is midline. CHEST: Clear. HEART: Regular without murmur. ABDOMEN: Soft and slightly obese. EXTREMITIES: Without clubbing, cyanosis, or edema. HOSPITAL COURSE: On November 10, 2017, she underwent Hill repair (reconstruction of the gastroesophageal junction with posterior gastropexy as well as intraoperative manometrics and placement of On-Q pain pump catheter). Her operation went very well and a good pullout pressure was noted with a peak pressure of 45 mmHg over a 4 cm intraabdominal segment. An optimal flap valve was reconstructed. Postoperatively, a nasogastric tube was maintained overnight and removed the next day and she was begun on a liquid diet and advanced promptly to full liquids and ultimately a mechanical soft diet. She was transitioned from a CHILDREN'S TUTOR NURSERY device and On-Q pain pump catheters to oral analgesics only. She did have IV Tylenol and IV Ketoralac early on. By the time of discharge, she is ambulating well, tolerating a mechanical soft diet, has no reflux symptoms at all and taking her usual medications. FOLLOWUP PLAN: She is return to see me in approximately 4 weeks or so. She was advised to avoid meat and bread for the time being and excessively cold or hot fluids or carbonated fluids for now. In time, she will have no restrictions on her diet. DISCHARGE MEDICATIONS: 1. Dilaudid 4 mg tablets 1-2 p.o. q.4 hours p.r.n. pain, #20. 2. Potassium chloride tablets 20 mEq p.o. daily. 3. Paroxetine (Paxil 40 mg) p.o. daily. Electronically Signed By: NOAH MURRAY MD 11/26/17 1411 PATIENT NAME: EDWINA SANCHEZ DISCHARGE SUMMARY DATE OF : 51 REPORT #: [id number] PHYSICIAN: NOAH MURRAY MD PCP: PAULY SILVA NP REPORT IS CONFIDENTIAL AND NOT TO BE RELEASED WITHOUT AUTHORIZATION [facility] [address], [place] [address] Signed 4. Atorvastatin (Lipitor 10 mg) p.o. daily. 5. Fluticasone one spray each nostril daily. 6. Lisinopril 10 mg p.o. daily. 7. Ropinirole (Requip 1 mg tablet) two times a day. 8. Estrace 0.5 mg p.o. daily. 9. Tylenol tablet 325 mg 1-2 tablets p.o. q.4 hours p.r.n. pain. She will discontinue her moxifloxacin, omeprazole and large potassium chloride tablets. DISCHARGE DIAGNOSES: 1. Medically refractory gastroesophageal reflux. 2. Status post open Hill repair (reconstruction of the gastroesophageal junction with posterior gastropexy and intraoperative manometrics). 3. Hearing deficit with cochlear implant. 4. Hypertension. 5. Dyslipidemia. 6. Chronic hypokalemia. MD DENNY Moody/PARAML /[id number] cc: Pauly Silva NP Copies: PAULY SILVA NP ~ Electronically Signed By: NOAH MURRAY MD 11/26/17 1411 PATIENT NAME: EDWINA SANCHEZ DISCHARGE SUMMARY DATE OF : 51 REPORT #: [id number] PHYSICIAN: NOAH MURRAY MD PCP: PAULY SILVA NP REPORT IS CONFIDENTIAL AND NOT TO BE RELEASED WITHOUT AUTHORIZATION
== END 2017-11-13 11:10 | disposition home or self-care (01) | DRG 328 ==
LOC: MS 11-10 06:45 → DSVR 11-10 09:50 → MS 11-10 10:30
PROVIDERS: ADMIT Surgery
PROC: 0DV40ZZ Restriction of Esophagogastric Junction, Open Approach (ICD-10-PCS; principal; 2017-11-10 10:30)
PROC: 0JH83VZ Insertion of Infusion Pump into Abdomen Subcutaneous Tissue and Fascia, Percutaneous Approach (ICD-10-PCS; principal; 2017-11-10 10:30)
DX: K21.9 Gastro-esophageal reflux disease without esophagitis (principal); K44.9 Diaphragmatic hernia without obstruction or gangrene
CPT/HCPCS: 00790; 94640; 94762; J0131; J0330; J0690; J1100; J1170; J1644; J1885; J2250; J2270; J2274; J2405; J2704; J3010; J3475; J7120